=== PATIENT | female | born 1995 | race Caucasian/White ===

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

== ENCOUNTER → 2018-05-13 16:35 | Emergency (ER) | payer SELFPAY ==
[~2018-05-13 16:35] MED LIST: Al Hydrox/Mg Hydrox/Simet LIQ* 30 ML UDC PO ONE; Famotidine TAB* 20 MG PO ONE; Ketorolac INJ* 30 MG/ML 1 ML VIAL IV PUSH ONE; NS 0.9% 1000 ML* 1,000 ML IV ONE; Ondansetron INJ* 2 MG/ML VIAL IV ONE
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
[2018-05-13 17:31] LABS: ABS Basophils 0.1 10^3/ul (0-0.2); ABS Eosinophils 0.1 10^3/ul (0-0.6); ABS Lymphocytes 2.1 10^3/ul (1.0-4.8); ABS Monocytes 0.2 10^3/ul (0-0.8); ABS Neutrophils 3.1 10^3/ul (1.5-7.7); ABS Nucleated RBC 0 10^3/ul; Eosinophil % 1.8 %; Hematocrit 42 % (35-47); Hemoglobin 14.3 g/dl (12.0-16.0); Lymphocyte % 37.3 %; Mean Corpuscular HGB Conc 34 g/dl (31-36); Mean Corpuscular Hemoglobin 33 pg (27-31); Mean Corpuscular Volume 96 fL (80-97); Mean Platelet Volume 7.8 fL (7.4-10.4); Nucleated Red Blood Cells % 0; Platelet Count 203 10^3/ul (150-450); Red Cell Distribution Width 12 % (10.5-15); White Blood Count 5.5 10^3/ul (3.5-10.8)
[2018-05-13 17:51] LABS: EGFR Non-African American 122.7 (>60)
[2018-05-13 18:25] VITALS: BP 120/60
== END | disposition home or self-care (01) ==
LOC: ED 16:35
DX: K29.20 Alcoholic gastritis without bleeding (principal); F10.129 Alcohol abuse with intoxication, unspecified; F17.210 Nicotine dependence, cigarettes, uncomplicated; V40.5XXA Car driver injured in collision with pedestrian or animal in traffic accident, initial encounter; Y92.9 Unspecified place or not applicable
CPT/HCPCS: 36415; 76705; 80053; 80320; 83605; 83690; 84702; 85025; 86140; 96361; 96374; 96375; 99282; A9270-GY; G0480; J1885; J2405

== ENCOUNTER 2019-01-09 08:29 | Emergency (ER) | payer OTHER ==
[2019-01-09 08:36] VITALS: BP 124/71
--- NOTE | 2019-01-09 08:50 | UC ---
Abdominal Pain Female HPI - HPI Summary HPI Summary: Patient is a 23 year old female, who present today to the urgent care with abdominal pain for past days. She reports that she has been having lower abdominal cramps on the left side for past 2 days. Pain is noticeable in the flank and feels it goes down into the groin on left side. There is associated discomfort during urination along with frequency. Denies any blood in urine, fevers or chills.Does report whitish vaginal discharge for past 3-4 days. She is sexually active but has not had any sexual activity since onset of symptoms and denies any symptoms and her partner. Denies any chest pain or shortness of breath . nausea or vomiting , diarrhea or constipation. - History of Current Complaint Chief Complaint: UCAbdominalPain Stated Complaint: ABDOMINAL PAIN Time Seen by Provider: 01/09/19 08:31 Hx Obtained From: Patient Hx Last Menstrual Period: 12/13/18 ?: No Pain Intensity: 4 Allergies/Adverse Reactions: Allergies Allergy/AdvReac Type Severity Reaction Status Date / Time nickel Allergy Hives Verified 01/09/19 08:36 PMH/Surg Hx/FS Hx/Imm Hx - Additional Past Medical History Additional PMH: Past Medical History : None Past Surgical History: Nephrectomy, T&A, ear tubes Family History : non contributory Social History : Occasional alcohol, daily smoker, no drug use. Previously Healthy: Yes Other History Of: Negative For: Anticoagulant Therapy - Surgical History Surgical History: Yes Surgery Procedure, Year, and Place: NEPHRECTOMY (AGE 3 MONTHS - "THIRD KIDNEY") . T&A, EAR TUBES - Family History Known Family History: Positive: Other - "cervical cancer and other cancers", Non -Contributory - Social History Alcohol Use: Occasionally Substance Use Type: None Smoking Status (MU): Heavy Every Day Tobacco Smoker Type: Cigarettes Amount Used/How Often: 1/2PPD Length of Time of Smoking/Using Tobacco: 1/2 ppd Have You Smoked in the Last Year: Yes Household Exposure Type: Cigarettes - Immunization History Vaccination Up to Date: Yes Review of Systems All Other Systems Reviewed And Are Negative: Yes Constitutional: Positive: Negative Skin: Positive: Negative Eyes: Positive: Negative ENT: Positive: Negative Respiratory: Positive: Negative Cardiovascular: Positive: Negative Gastrointestinal: Positive: Abdominal Pain Genitourinary: Positive: Dysuria, Frequency, Vaginal/Penile Discharge - Whitish. Negative: Hematuria Motor: Positive: Negative Neurovascular: Positive: Negative Musculoskeletal: Positive: Negative Neurological: Positive: Negative Psychological: Positive: Negative Is Patient Immunocompromised?: No Physical Exam - Summary Physical Exam Summary: Physical Exam: Const: Appears well. No signs of apparent distress present. Alert and oriented x 3. Musculo: Walks with a normal gait. Head/Face: Atraumatic, normocephalic on inspection. Eyes: EOMI and PERRLA in both eyes. Conjunctivae clear. No discharge noted ENT: Hearing normal Respiratory: Respirations are unlabored. Lungs clear to auscultation bilaterally, no wheezing , rhonchi or rales noted . CVS: Regular rate and Rhythm, S1S2 normal , no murmurs identified. Extremities: Peripheral circulation is grossly normal. Pulses 2+ Abdomen : Soft, lower abdominal and pelvic tenderness, most tender on the left lower quadrant area, nondistended , Bowel sounds present . There is guarding and rebound tenderness but no rigidity noted. CVA tenderness noted on the left side Skin: No lesions or rash located on the upper extremities or on the lower extremities. Neuro: Cranial nerves II to XII intact, motor and sensory intact. DTR Intact bilaterally. Mood is normal. Affect is normal. Triage Information Reviewed: Yes Vital Signs: Initial Vital Signs Temp 97.4 F 01/09/19 08:32 Pulse 92 01/09/19 08:32 Resp 18 01/09/19 08:32 BP 124/71 01/09/19 08:32 Pulse Ox 100 01/09/19 08:32 Vital Signs Reviewed: Yes Abd Pain Female Course/Dx - Course Course Of Treatment: During the visit today, we discussed the findings- ureteric stone versus ovarian cyst. Patient needs additional testing, thus ER transfer advised and patient agrees. Report called to the ER provider () [facility], advised provider of the history, physical examination, and duration of illness and the need for definitive management. She does have some whitish vaginal discharge and I offered female provider for a pelvic exam but since she will be going to the ER, she preferred pelvic to be done in the ER. Patient expressed understanding . Her friend will drive her to the ER. - Differential Dx/Diagnosis Differential Diagnosis: Ovarian Cyst, Renal Colic Provider Diagnosis: Abdominal pain Discharge - Sign-Out/Discharge Documenting (check all that apply): Patient Departure All imaging exams completed and their final reports reviewed: No Studies - Discharge Plan Condition: Stable Disposition: HOME-RECOMMEND TO ED Patient Education Materials: Acute Abdominal Pain (ED) Referrals: No Primary Care Phys,NOPCP [Primary Care Provider] - Additional Instructions: Please go to the ER immediately after you leave here. Patients blood pressure slightly high( prehypertensive range) in Urgent care today , plan follow up with PCP for better control . - Billing Disposition and Condition Condition: STABLE Disposition: Home-Recommend to ED
== END 2019-01-09 09:05 | disposition home health service (06) ==
LOC: UCEAST 08:29
DX: N39.0 Urinary tract infection, site not specified (principal); F41.9 Anxiety disorder, unspecified; Z88.7 Allergy status to serum and vaccine
CPT/HCPCS: 81002; 99212; G0463

== ENCOUNTER 2019-04-26 07:16 | Emergency (ER) | payer OTHER ==
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
[2019-04-26 09:17] VITALS: BP 126/71
== END 2019-04-26 09:17 | disposition home or self-care (01) ==
LOC: ED 07:16
DX: S06.0X9A Concussion with loss of consciousness of unspecified duration, initial encounter (principal); V49.40XA Driver injured in collision with unspecified motor vehicles in traffic accident, initial encounter; Y92.410 Unspecified street and highway as the place of occurrence of the external cause; F17.210 Nicotine dependence, cigarettes, uncomplicated; Z90.5 Acquired absence of kidney
CPT/HCPCS: 70450; 99282

== ENCOUNTER 2019-06-21 08:29 | Emergency (ER) | payer SELFPAY ==
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
[2019-06-21 09:11] LABS: ABS Basophils 0.1 10^3/ul (0-0.2); ABS Eosinophils 0.3 10^3/ul (0-0.6); ABS Lymphocytes 1.7 10^3/ul (1.0-4.8); ABS Monocytes 0.5 10^3/ul (0-0.8); ABS Neutrophils 7.1 10^3/ul (1.5-7.7); Eosinophil % 2.7 %; Hematocrit 42 % (35-47); Hemoglobin 14.4 g/dL (12.0-16.0); Lymphocyte % 17.6 %; Mean Corpuscular HGB Conc 34 g/dL (31-36); Mean Corpuscular Hemoglobin 33 pg (27-31); Mean Corpuscular Volume 96 fL (80-97); Mean Platelet Volume 7.7 fL (7.4-10.4); Nucleated Red Blood Cells % 0.1; Platelet Count 228 10^3/uL (150-450); Red Blood Count 4.38 10^6 /uL (3.70-4.87); Red Cell Distribution Width 13 % (10-15); White Blood Count 9.5 10^3/uL (3.5-10.8)
--- OUTSIDE RECORDS SUMMARY | 2019-06-21 09:29 | XMS REPORT | Continuity of Care Document ---
:1995 External Reference #:[id number] Author Name Jaciel Moore M.D. (transmitted by agent of provider Ailyn Machado) Address [address], [place] [address] Problems Active Problems Provider Date Chronic fatigue syndrome Jaciel Moore M.D. Onset: 05/06/2019 Headache Jaciel Moore M.D. Onset: 05/06/2019 Concussion with no loss of consciousness Jaciel Moore M.D. Onset: 2018 Social History Type Date Description Comments Sex Unknown ETOH Use Occasionally consumes alcohol Tobacco Use Start: Unknown Light tobacco smoker (10 or times 4 yrs. fewer cigarettes/day) Recreational Drug Use Denies Drug Use Exercise Type/Frequency Exercises rarely Allergies, Adverse Reactions, Alerts Description No Known Drug Allergies Medications Active Medications SIG Qnty Indications Ordering Provider Date Ibuprofen 1 by mouth three Unknown 800mg Tablets times a day Reglan 1 tab by mouth Unknown 10mg Tablets every day 4x a day Benadryl Allergy take one tablet Unknown 25mg every 8 hours as Tablets needed Medications Administered in Office Medication SIG Qnty Indications Ordering Provider Date PPD Injection Link Chamberlain MD 03/05/2018 Immunizations Description No Information Available Vital Signs Date Vital Result Comment 05/06/2019 10:35am Height 65 inches 5'5" Weight 157.00 lb Heart Rate 88 /min BP Systolic Sitting 122 mmHg BP Diastolic Sitting 78 mmHg Respiratory Rate 20 /min BMI (Body Mass Index) 26.1 kg/m2 Results Description No Information Available Procedures Description No Information Available Medical Devices Description No Information Available Encounters Description No Information Available Assessments Date Code Description Provider 05/06/2019 S06.0x0A Concussion without loss of consciousness, Jaciel Moore M.D. initial encounter 05/06/2019 R51 Headache Jaciel Moore M.D. 05/06/2019 R53.82 Chronic fatigue, unspecified Jaciel Moore M.D. Plan of Treatment No Information Available Functional Status Description No Information Available Mental Status Description No Information Available Referrals Description No Information Available
[2019-06-21 09:31] LABS: ALT 17 U/L (7-52); AST 26 U/L (13-39); Albumin 4.4 g/dL (3.2-5.2); Albumin/Globulin Ratio 1.7 (1-3); Alkaline Phosphatase 71 U/L (34-104); Anion Gap 10 mmol/L (2-11); BUN/Creatinine Ratio 19.4 (8-20); Blood Urea Nitrogen 12 mg/dL (6-24); CO2 Carbon Dioxide 22 mmol/L (22-32); Calcium 8.8 mg/dL (8.6-10.3); Chloride 106 mmol/L (101-111); EGFR African American 145.6 (>60); EGFR Non-African American 120.4 (>60); Globulin 2.6 g/dL (2-4); Glucose 89 mg/dL (70-100); Potassium 3.8 mmol/L (3.5-5.0); Sodium 138 mmol/L (135-145)
[2019-06-21] MEDS ORDERED: Morphine 4 MG/ML VIAL (1 ml) 4 MG/ML VIAL IV ONE (09:33)
[2019-06-21] MEDS ORDERED: Ondansetron INJ* 2 MG/ML VIAL IV ONE (09:33)
[2019-06-21 09:40] LABS: HCG Pregnancy < 0.60 mIU/mL
[2019-06-21] MEDS ORDERED: Iohexol 300* (CONTRAST) 10 ML SDV IV ONE (09:45)
[2019-06-21 11:46] VITALS: BP 129/80
== END 2019-06-21 11:45 | disposition home or self-care (01) ==
LOC: ED 08:29
DX: R07.9 Chest pain, unspecified (principal); M54.9 Dorsalgia, unspecified; F17.210 Nicotine dependence, cigarettes, uncomplicated; S20.212A Contusion of left front wall of thorax, initial encounter; V49.40XA Driver injured in collision with unspecified motor vehicles in traffic accident, initial encounter; Y92.9 Unspecified place or not applicable; Z90.5 Acquired absence of kidney
CPT/HCPCS: 36415; 71046; 71260; 74177; 80053; 84702; 85025; 96374; 96375; 99283; J2270; J2405; Q9967